=== PATIENT | female | born 1985 | race Caucasian/White ===

== ENCOUNTER → 2016-07-13 | Outpatient (CLI) | payer OTHER ==
[~2016-07-13] MED LIST: OMEPRAZOLE20 M1 PO
== END ==
LOC: US 07-10 10:00
DX: R10.9 Unspecified abdominal pain (principal)
CPT/HCPCS: 76700

== ENCOUNTER → 2016-08-13 | Outpatient (CLI) | payer OTHER | LOC: NM 08-07 08:00 | DX: R10.9 Unspecified abdominal pain (principal); R93.2 Abnormal findings on diagnostic imaging of liver and biliary tract | CPT/HCPCS: 78226; A9537 ==

== ENCOUNTER → 2016-09-28 | Day surgery (SDC) | payer OTHER | END | disposition home or self-care (01) | LOC: OR 06:28 | PROVIDERS: Surgery | PROC: 0DB68ZX Excision of Stomach, Via Natural or Artificial Opening Endoscopic, Diagnostic (ICD-10-PCS; 2016-09-28) | PROC: 0DB48ZX Excision of Esophagogastric Junction, Via Natural or Artificial Opening Endoscopic, Diagnostic (ICD-10-PCS; principal; 2016-09-28 07:30) | DX: R10.13 Epigastric pain (principal); K21.9 Gastro-esophageal reflux disease without esophagitis; K82.9 Disease of gallbladder, unspecified; G43.909 Migraine, unspecified, not intractable, without status migrainosus; Z87.891 Personal history of nicotine dependence; Z79.899 Other long term (current) drug therapy | CPT/HCPCS: 84703; J2250; J7120 ==

== ENCOUNTER → 2020-04-11 | Outpatient (CLI) | payer OTHER ==
[~2020-04-11] MED LIST changes: +BACTRIM 400-801 EACH PO; +COLACE 100MG C100 MG PO; +CYMBALTA 20 MG20 MG PO; +IBUPROFEN600 MG PO; +MACROBID 100 M100 MG PO; +NORCO 5-325 TA1 EACH PO; +PLAQUENIL200 MG PO
== END ==
LOC: MAMO 10:30
DX: N64.59 Other signs and symptoms in breast (principal)
CPT/HCPCS: 77066; G0279

== ENCOUNTER → 2020-08-20 | Outpatient (CLI) | payer OTHER | LOC: EMI 15:30 | DX: M79.7 Fibromyalgia (principal); M25.60 Stiffness of unspecified joint, not elsewhere classified; G89.29 Other chronic pain | CPT/HCPCS: 70553; A9577 ==

== ENCOUNTER → 2020-12-05 | Day surgery (SDC) | payer OTHER ==
[~2020-12-05] VITALS: Ht 170.2 cm; Wt 86.6 kg
[~2020-12-05] MED LIST changes: +AMBIEN10 MG PO; +CYANOCOBAL1000 MCG/1 INJ; +CYCLOBENZAPRINE10 MG PO; +CYMBALTA 30 MG30 MG PO; +DICLOFENAC 1% GEL TOP; +EMGALITY S120 MG/1 M SQ; +EYE OU; +FOLIC ACID1 MG PO; +IMITREX50 MG PO; +KLONOPIN1 MG PO; +MIRAPEX0.25 MG PO; +OXYCODON-ACETA1 EAC1 PO; +PREGABALIN75 MG PO; +RITUXIMAB; +SALAGEN5 MG PO; +ULTRAM50 MG PO; +VITAMIN D31250 MCG PO; +XIIDRA OU; +ZOFRAN 4 MG TAB4 MG PO
== END | disposition home or self-care (01) ==
LOC: OR 06:18
DX: S52.572A Other intraarticular fracture of lower end of left radius, initial encounter for closed fracture (principal); F41.9 Anxiety disorder, unspecified; F32.9 Major depressive disorder, single episode, unspecified; M06.9 Rheumatoid arthritis, unspecified; G62.9 Polyneuropathy, unspecified; Z91.040 Latex allergy status; Z79.899 Other long term (current) drug therapy; Z20.822 Contact with and (suspected) exposure to COVID-19; V19.9XXA Pedal cyclist (driver) (passenger) injured in unspecified traffic accident, initial encounter
CPT/HCPCS: 73100; 76000; 84703; J0592; J0690; J1100; J1885; J2001; J2250; J2405; J2550; J2704; J2795; J3010; J7120; U0002

== ENCOUNTER → 2021-02-13 | Outpatient (CLI) | payer MEDICARE, OTHER ==
[2021-02-13 11:38] LABS: HEMOGLOBIN 15.3 gm/dl (12.3-15.3); RED BLOOD COUNT 4.77 M/UL (4.00-5.10); WHITE BLOOD COUNT 6.6 K/UL (4.5-11.0)
[2021-02-13 12:17] LABS: BUN/CREATININE RATIO 20 (0-10)
== END ==
LOC: LAB 11:00
PROVIDERS: Internal Medicine
DX: M06.09 Rheumatoid arthritis without rheumatoid factor, multiple sites (principal); R53.83 Other fatigue; R80.9 Proteinuria, unspecified; M35.00 Sjogren syndrome, unspecified; Z79.899 Other long term (current) drug therapy
CPT/HCPCS: 36415; 80053; 81001; 82570; 82595; 84156; 84439; 84443; 85025; 85652; 86140

== ENCOUNTER → 2021-02-24 | Outpatient (CLI) | payer MEDICARE, OTHER ==
[~2021-02-24] VITALS: Ht 170.2 cm; Wt 86.2 kg
== END ==
LOC: OPSV 09:00
DX: M06.00 Rheumatoid arthritis without rheumatoid factor, unspecified site (principal)
CPT/HCPCS: 96375; 96413; 96415; J2930; J7030; J9312

== ENCOUNTER → 2021-03-10 | Outpatient (CLI) | payer OTHER | LOC: OPSV 08:00 | DX: M06.00 Rheumatoid arthritis without rheumatoid factor, unspecified site (principal) | CPT/HCPCS: 96375; 96413; 96415; J2930; J7030; J9312 ==

== ENCOUNTER → 2021-09-10 | Outpatient (CLI) | payer MEDICARE, OTHER ==
[2021-09-10 11:53] LABS: HEMOGLOBIN 15.5 gm/dl (12.3-15.3); RED BLOOD COUNT 4.88 M/UL (4.00-5.10)
[2021-09-10 12:18] LABS: BUN/CREATININE RATIO 15 (0-10)
[2021-09-11 14:13] LABS: SJOGREN'S ANTI-SS-A <0.2 AI (0.0-0.9); SJOGREN'S ANTI-SS-B <0.2 AI (0.0-0.9)
[2021-09-13 09:12] LABS: QUANTIFERON MITOGEN VALUE >10.00 IU/mL (.); QUANTIFERON NIL VALUE 0.35 IU/mL (.); QUANTIFERON TB1 AG VALUE 0.36 IU/mL (.); QUANTIFERON-TB GOLD PLUS Negative (Negative)
== END ==
LOC: LAB 10:51
PROVIDERS: Physician Assistant Medical
DX: M06.00 Rheumatoid arthritis without rheumatoid factor, unspecified site (principal); E55.9 Vitamin D deficiency, unspecified
CPT/HCPCS: 36415; 80053; 83520; 85025; 85652; 86038; 86140; 86200; 86235

== ENCOUNTER → 2021-10-31 | Outpatient (CLI) | payer MEDICARE, OTHER | LOC: OPSV 10-29 08:00 | DX: M06.9 Rheumatoid arthritis, unspecified (principal) | CPT/HCPCS: 96375; 96413; 96415; J1200; J2405; J2930; J7030; J9312 ==

== ENCOUNTER → 2021-11-03 | Outpatient (CLI) | payer MEDICARE, OTHER | LOC: MAMO 09:39 | DX: Z12.31 Encounter for screening mammogram for malignant neoplasm of breast (principal) | CPT/HCPCS: 77063; 77067 ==

== ENCOUNTER → 2021-11-14 | Outpatient (CLI) | payer MEDICARE, OTHER | LOC: OPSV 11-12 08:00 | DX: M06.9 Rheumatoid arthritis, unspecified (principal); Z88.8 Allergy status to other drugs, medicaments and biological substances | CPT/HCPCS: 96361; 96375; 96413; 96415; J1200; J2405; J2930; J7030; J9312 ==